=== PATIENT | male | born 1970 | race Caucasian/White ===

== ENCOUNTER 2020-03-29 16:07 | Emergency (ER) | payer OTHER ==
--- NOTE | 2020-03-29 17:50 | ER Document Report ---
ED General - General Chief Complaint: Allergic Reaction Stated Complaint: POSSIBLE ALLERGIC REACTION Time Seen by Provider: 03/29/20 17:27 - HPI Notes: Chief complaint: Allergic reaction to bee sting HPI: 49-year-old male previously in good general health taking no regular medications with no known allergies to medications was working outdoors with the [employer] for [facility] when he was stung by 2 yellow jackets one on the right wrist and the other on the right side of the face. Within several minutes of these things he began to have paresthesias of both hands and both feet and he subsequently developed tightness in the center of his chest and sensation of difficulty breathing and slight swelling of his tongue. EMS was called. They administered IM Benadryl and IM EpiPen. Symptoms had essentially resolved by the time of his arrival here. He remains asymptomatic. He denies any past reaction to bee sting that he is aware of. Patient is a 1 pack/day cigarette smoker. He also consumes about 4 beers daily. No prior hospitalizations or surgery. - Related Data Allergies/Adverse Reactions: bee venom protein (honey bee) Allergy (Verified 03/29/20 16:22) poison rosibel extract Allergy (Verified 03/29/20 16:22) Past Medical History - General Information source: Patient - Social History Smoking Status: Current Every Day Smoker Frequency of alcohol use: Social Drug Abuse: None Lives with: Family Family History: Reviewed & Not Pertinent Patient has homicidal ideation: No - Past Medical History Cardiac Medical History: Reports: None Endocrine Medical History: Denies: Hx Diabetes Mellitus Type 1, Hx Diabetes Mellitus Type 2 Past Surgical History: Reports: None Review of Systems - Review of Systems Notes: Constitutional: Negative for fever. HENT: Negative for sore throat. Eyes: Negative for visual changes. Cardiovascular: As per HPI. Respiratory: As per HPI. Gastrointestinal: Negative for abdominal pain, vomiting or diarrhea. Genitourinary: Negative for dysuria. Musculoskeletal: Negative for back pain. Skin: Negative for rash. Neurological: Negative for headaches, weakness or numbness. 10 point ROS negative except as marked above and in HPI. Physical Exam - Vital signs Vitals: Temp Pulse Resp BP Pulse Ox 99.5 F 104 H 20 134/99 H 95 03/29/20 16:15 03/29/20 16:15 03/29/20 16:15 03/29/20 16:15 03/29/20 16:15 - Notes Notes: GENERAL: Well-developed well-nourished male approximately stated age appearing in no acute distress. SKIN: Good turgor no rashes. HEAD: Normocephalic atraumatic. EYES: PERRLA. EOMI. Conjunctivae and sclerae clear. EARS: CANALS AND TMS CLEAR. NOSE: CLEAR. MOUTH: Moist mucosa. Good dentition. No stridor or edema. No drooling. NECK: Supple. No masses or thyromegaly. No adenopathy. Carotids 2+ without b ruits. No JVD. BACK: Symmetrical without tenderness. CHEST: Respirations unlabored. Breath sounds clear and symmetrical. HEART: Regular rhythm. No murmur gallop or rub. ABDOMEN: Soft nontender without masses, organomegaly or rebound. Bowel sounds normally active. No bruits. GENITALIA: Deferred. EXTREMITIES: No edema. No calf tenderness. Cap refill less than 1.5 seconds. Dorsalis pedis and posterior tibial pulses 3+ and symmetrical. NEUROLOGICAL: GCS 15. Alert and oriented x3. Normal gait. Fluent speech. Cranial nerves II through XII intact. Sensorimotor and cerebellar normal. Normal tone. PSYCHIATRIC: Appropriate affect. Course - Re-evaluation Re-evalutation: 03/29/20 17:50 This man is hemodynamically stable and asymptomatic at this time. Because of the episodic chest tightness he had I am going to check an EKG. If this looks okay I think he can be started on some antihistamine and a brief course of oral steroids and discharged home with a prescription for an EpiPen. - Vital Signs Vital signs: Temp Pulse Resp BP Pulse Ox 99.5 F 104 H 20 134/99 H 95 03/29/20 16:15 03/29/20 16:15 03/29/20 16:15 03/29/20 16:15 03/29/20 16:15 - EKG Interpretation by Me Additional EKG results interpreted by me: 03/29/20 18:25 Twelve-lead EKG from 1753 hrs. reviewed contemporaneously by me demonstrating a normal sinus rhythm rate of 78, normal intervals and a QRS axis of -11 degrees. There are no acute ST/T wave changes noted. There is no prior tracing for direct comparison. Indication for current study: Chest pain/anaphylaxis. Discharge - Discharge Clinical Impression: Anaphylaxis secondary to bee sting Condition: Stable Disposition: HOME, SELF-CARE Additional Instructions: Return here as needed for new or worsening symptoms: Recurrence of swelling or difficulty breathing Overall worsening Prescriptions: Hydroxyzine HCl [Atarax 10 mg Tablet] 25 mg PO TID 5 Days #15 tablet Prednisone [Deltasone 20 mg Tablet] 2 tab PO DAILY 5 Days tablet Epinephrine [Epipen 2-David] 0.3 mg IM ONCE PRN #1 packet PRN Reason: Forms: Return to Work Referrals: [facility] [Provider Group] - Follow up as needed
--- NOTE | 2020-03-29 18:22 | EKG REPORT ---
SEVERITY:- BORDERLINE ECG - SINUS RHYTHM PROBABLE LEFT ATRIAL ABNORMALITY : Confirmed by: Porfirio Doty MD 29-Mar-2020 18:21:21
[2020-03-29] MEDS ORDERED: PREDNISONE 20 MG TABLET PO ONE (18:30)
[2020-03-29 18:37] VITALS: BP 147/97
== END 2020-03-29 18:37 | disposition home or self-care (01) ==
LOC: ER 16:07
DX: T63.441A Toxic effect of venom of bees, accidental (unintentional), initial encounter (principal); T78.2XXA Anaphylactic shock, unspecified, initial encounter; Y99.0 Civilian activity done for income or pay; F17.210 Nicotine dependence, cigarettes, uncomplicated; Z91.048 Other nonmedicinal substance allergy status
CPT/HCPCS: 93005; 99283; 93010; J7512